=== PATIENT | female | born 1985 | race Caucasian/White ===

== ENCOUNTER 2024-10-23 12:08 | Emergency (ER) | payer BC, SELFPAY ==
[2024-10-23 12:11] VITALS: BP 171/100
[2024-10-23 13:42] VITALS: BMI 35.0
[2024-10-23] MEDS: DILAUDID 0.5 MG IV (13:45)
[2024-10-23] MEDS: NSS 1000 IV ×2 (13:46→16:13)
[2024-10-23 14:04] LABS: Hematocrit 30.1 % (37.0-47.0); Hemoglobin 9.4 g/dL (12.0-16.0); Mean Corp Hgb Conc. 31.2 g/dL (33.0-37.0); Mean Corpuscular Volume 81.4 fL (81.0-99.0); Nucleated Red Blood Cells % 0 %; Platelet Count 219 10^3/uL (130-400); Red Cell Dist. Width 14.8 % (11.5-14.5)
[2024-10-23 14:06] LABS: Urine Character Clear (Clear)
[2024-10-23 14:21] VITALS: BP 149/95
[2024-10-23 14:23] LABS: HCG, Serum Qualitative Screen Negative
[2024-10-23 14:24] LABS: Urine Red Blood Cell 0-2 /HPF (0-2)
[2024-10-23 14:25] LABS: ALT (SGPT) 366 U/L (0-35); AST (SGOT) 125 U/L (14-36); Albumin 4.1 g/dl (3.5-5.0); Alkaline Phosphatase 120 U/L (38-126); Blood Urea Nitrogen 34 mg/dl (7-17); Calcium 9.4 mg/dl (8.4-10.2); Carbon Dioxide 23 mmol/L (22-30); Chloride 109 mmol/L (98-107); Estimated Creatinine Clearance 70 ml/min; Glucose 81 mg/dl (70-99); Lipase 117 U/L (23-300); Potassium 4.0 mmol/L (3.5-5.1); Sodium 139 mmol/L (135-145); Total Protein 6.6 g/dl (6.3-8.2); eGFR > 60.00
[2024-10-23 15:33] VITALS: BP 125/74
--- NOTE | 2024-10-23 16:14 | ED.GENMED ---
History of Present Illness
<AMADOR Allen Last Filed: 10/24/24 11:57>
General
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
Source: patient
Exam Limitations: none
Time Seen by Provider: 10/23/24 12:19
Nursing documentation reviewed up to this point in time: agreed with
History of Present Illness
History of Present Illness:
see MDM
Past History
<AMADOR Allen Last Filed: 10/24/24 11:57>
Past History
ED Past Medical History: Cancer (renal cell carcinoma), HTN, Hypothyroidism and Other (UTI)
ED Past Surgical History: Appendectomy, Cholecystectomy and Urological (partial nephrectomy L)
Social History
Tobacco: Non-smoker
Alcohol: None
Drug: None
Personal: Single
Phy Exam
<AMADOR Allen Last Filed: 10/24/24 11:57>
Physical Exam
Physical Exam:
GENERAL: Alert , in no apparent distress
EYE: pupils equal and reactive
NECK: Supple
ENT: o/p clr, mmm.
CARDIAC: Regular rate and rhythm .
LUNGS: Clear breath sounds bilaterally, no acute respiratory distress, no wheezes/rales/rhonchi
ABDOMEN: Soft, tender pelvic region,k lowr abdomen, mild RUQ tenderness, mild B/L CVA tenderness; no r/g, no cvat, normal bowel sounds
gU; normal external inspection
mild cloudy discharge
mild discomfort with exam
no erythema to cervix
NEUROLOGICAL: Alert and oriented, no focal neuro deficits
SKIN: Warm and dry, skin intact.
MUSCULOSKELETAL: No edema, well perfused. neg lexis's sign
PSYCH: Normal and appropriate interaction.
Course
<AMADOR Allen Last Filed: 10/24/24 11:57>
Orders/Labs/Results
Orders:
Orders
10/23/24 13:14
0.9% Sodium Chloride 1000 ml [Nss] 1,000 ml IV BOLUS
HYDROmorphone [Dilaudid] 0.5 mg IV NOW STA
10/23/24 13:15
Test Result ONCE
10/23/24 13:41
Complete Blood Count/With Diff Urgent
Comprehensive Metabolic Panel Urgent
HCG, Serum Qualitative Screen Urgent
Lactic Acid Urgent
Lipase Urgent
Urinalysis Reflex To Culture Urgent
Date Specimen was Collected: 10/23/24
Time Specimen was Collected: 13:38
Urine Microscopic Reflex Cult Urgent
Chlamydia/GC by PCR Urgent
ELISE Source: Endo-Cervical
Specimen Description:
Source:: URINE
Date Specimen was Collected: 10/23/24
Time Specimen was Collected: 13:38
Comment: Add on per Minerva Bautista PA-C
10/23/24 15:53
US Abdomen Complete/Upper Urgent
Comment:
Reason For Exam: elevated LFTs, abd pain, back pain
US Pelvis Only (non-obstetric) Urgent
Reason For Exam: pelvic pain, h/o ovarian cyst
10/23/24 16:07
0.9% Sodium Chloride 1000 ml [Nss] 1,000 ml IV BOLUS
10/23/24 16:12
Trichomonas - Wet Prep Urgent
ELISE Source: Vagina
Specimen Description:
Date Specimen was Collected: 10/23/24
Time Specimen was Collected: 16:07
10/23/24 17:45
Ketorolac [Toradol] 30 mg IV NOW STA
10/23/24 18:48
Add On- LAB Urgent
Tests Added?: urine- chlamydia, GC
10/23/24 20:48
Ceftriaxone Sodium [Rocephin] 500 mg IM NOW STA
10/23/24 20:50
Doxycycline [Vibramycin] 100 mg PO NOW STA
Abnormal Lab Results
10/23/24
13:41
RBC 3.70 L 10^6/uL
(4.20-5.40)
Hgb 9.4 L g/dL
(12.0-16.0)
Hct 30.1 L %
(37.0-47.0)
MCH 25.4 L pg
(27.0-31.0)
MCHC 31.2 L g/dL
(33.0-37.0)
RDW 14.8 H %
(11.5-14.5)
MPV 11.2 H fL
(7.4-10.4)
Chloride 109 H mmol/L
(98-107)
BUN 34 H mg/dl
(7-17)
AST 125 H U/L
(14-36)
ALT 366 H U/L
(0-35)
Urine Bacteria (Reflex) Few A
(Negative)
Urine Glucose 3+ A
(Negative)
Urine Albumin (Reflex) 1+ A
(Neg - Trace)
10/23/24 13:41
10/23/24 13:41
Vital Signs
Initial and Last Documented VS:
Initial Vital Signs
Temp Pulse Resp BP Pulse Ox
37.1 C 102 17 171/100 98
10/23/24 12:11 10/23/24 12:11 10/23/24 12:11 10/23/24 12:11 10/23/24 12:11
Last Documented Vital Signs
Temp Pulse Resp BP Pulse Ox
37.1 C 91 16 141/70 98
10/23/24 12:11 10/23/24 20:04 10/23/24 20:04 10/23/24 20:04 10/23/24 20:04
<Joana Montiel PA-C - Last Filed: 10/24/24 02:39>
Orders/Labs/Results
Orders:
Orders
10/23/24 13:14
0.9% Sodium Chloride 1000 ml [Nss] 1,000 ml IV BOLUS
HYDROmorphone [Dilaudid] 0.5 mg IV NOW STA
10/23/24 13:15
Test Result ONCE
10/23/24 13:41
Complete Blood Count/With Diff Urgent
Comprehensive Metabolic Panel Urgent
HCG, Serum Qualitative Screen Urgent
Lactic Acid Urgent
Lipase Urgent
Urinalysis Reflex To Culture Urgent
Date Specimen was Collected: 10/23/24
Time Specimen was Collected: 13:38
Urine Microscopic Reflex Cult Urgent
Chlamydia/GC by PCR Urgent
ELISE Source: Endo-Cervical
Specimen Description:
Source:: URINE
Date Specimen was Collected: 10/23/24
Time Specimen was Collected: 13:38
Comment: Add on per Minerva Bautista PA-C
10/23/24 15:53
US Abdomen Complete/Upper Urgent
Comment:
Reason For Exam: elevated LFTs, abd pain, back pain
US Pelvis Only (non-obstetric) Urgent
Reason For Exam: pelvic pain, h/o ovarian cyst
10/23/24 16:07
0.9% Sodium Chloride 1000 ml [Nss] 1,000 ml IV BOLUS
10/23/24 16:12
Trichomonas - Wet Prep Urgent
ELISE Source: Vagina
Specimen Description:
Date Specimen was Collected: 10/23/24
Time Specimen was Collected: 16:07
10/23/24 17:45
Ketorolac [Toradol] 30 mg IV NOW STA
10/23/24 18:48
Add On- LAB Urgent
Tests Added?: urine- chlamydia, GC
10/23/24 20:48
Ceftriaxone Sodium [Rocephin] 500 mg IM NOW STA
10/23/24 20:50
Doxycycline [Vibramycin] 100 mg PO NOW STA
Abnormal Lab Results
10/23/24
13:41
RBC 3.70 L 10^6/uL
(4.20-5.40)
Hgb 9.4 L g/dL
(12.0-16.0)
Hct 30.1 L %
(37.0-47.0)
MCH 25.4 L pg
(27.0-31.0)
MCHC 31.2 L g/dL
(33.0-37.0)
RDW 14.8 H %
(11.5-14.5)
MPV 11.2 H fL
(7.4-10.4)
Chloride 109 H mmol/L
(98-107)
BUN 34 H mg/dl
(7-17)
AST 125 H U/L
(14-36)
ALT 366 H U/L
(0-35)
Urine Bacteria (Reflex) Few A
(Negative)
Urine Glucose 3+ A
(Negative)
Urine Albumin (Reflex) 1+ A
(Neg - Trace)
10/23/24 13:41
10/23/24 13:41
Vital Signs
Initial and Last Documented VS:
Initial Vital Signs
Temp Pulse Resp BP Pulse Ox
37.1 C 102 17 171/100 98
10/23/24 12:11 10/23/24 12:11 10/23/24 12:11 10/23/24 12:11 10/23/24 12:11
Last Documented Vital Signs
Temp Pulse Resp BP Pulse Ox
37.1 C 91 16 141/70 98
10/23/24 12:11 10/23/24 20:04 10/23/24 20:04 10/23/24 20:04 10/23/24 20:04
<Minevra Bautista PA-C - Last Filed: 10/24/24 11:57>
MDM/Problems Addressed
Differential Diagnosis Includes:
seeMDM
MDM/Problems Addressed:
Note:
CHIEF COMPLAINT(S)
Severe pelvic pain persisting for two days with increased urinary frequency.
HISTORY OF PRESENT ILLNESS
The patient is a 38-year-old female with a history of ovarian cysts, UTIs, pyelonephritis and a partial nephrectomy in 2017 due to renal cell carcinoma, presenting with severe pelvic pain for the past two days and frequent urination. She mentioned,
'Maia had really bad pelvic pain,' and confirmed the urinary frequency started approximately two days prior to the onset of pelvic pain. The patient denies dysuria but reports chills. She has a history of bilateral ovarian cysts for which she has
never required surgery. She is not on control and last reported menstrual cycle started on September 26. The patient rates her pelvic pain at an intensity of 10 out of 10, noting difficulty standing upright on the previous day due to the
discomfort. She also experiences tenderness in the flank region, describing episodes of 'on and off aching' throughout the night.
The patient takes Tylenol with codeine for chronic back pain without relief from her pelvic symptoms. She explains, 'Its usually pretty good for my back,' but states she has had to increase the dosage to manage the current pain. The patient has a
known intolerance for ibuprofen and reports flank tenderness upon palpation.
PAST MEDICAL AND SURGICAL HISTORY
Partial nephrectomy in 2017 for renal cell carcinoma.
History of bilateral ovarian cysts.
History of pyelonephritis.
CHRONIC MEDICAL CONDITIONS SIGNIFICANTLY AFFECTING CARE
Chronic back pain.
SOCIAL DETERMINANTS AFFECTING HEALTH
Not discussed.
REVIEW OF SYSTEMS
- Genitourinary: Urinary frequency without dysuria.
- Constitutional: Chills, though no fevers reported.
- Gastrointestinal: No nausea or vomiting.
- Musculoskeletal: Severe pelvic pain, difficulty standing upright.
- Reproductive: Last menstrual cycle began on September 26; no vaginal bleeding or discharge reported.
PHYSICAL EXAM
- Abdomen: Renal tenderness upon palpation, particularly in the flank areas (reported as tender in both the graft and kidney region).
- Genitourinary: Tenderness noted in the pelvic region upon examination.
Nursing notes reviewed and vital signs reviewed.
PROBLEM LIST
Acute:
- Severe pelvic pain
- Frequent urination
Chronic:
- Chronic back pain
PLAN
- Perform urinalysis and blood work to evaluate for urinary tract infection and assess kidney function.
- Administer intravenous fluids and provide pain relief via previously tolerated medications (morphine or dilaudid).
- Consider imaging with a non-contrast study to rule out obstruction, keeping in mind the partial nephrectomy and the emphasis on avoiding IV contrast.
- Wait for urinalysis results to further guide management and consider differentials based on findings, including potential pyelonephritis or other pelvic pathology.
DIFFERENTIAL DIAGNOSIS
The Differential Diagnosis includes, in no particular order and is not limited to:
1. Urinary tract infection
2. Pyelonephritis
3. Ovarian cyst rupture
4. Renal colic or kidney stones
5. Pelvic inflammatory disease
6. Endometriosis
7. Appendicitis
8. Ectopic
9. Ureteral obstruction
10. Diverticulitis
CARE-UPDATE
10/23/24 - 15:50
Urinalysis indicates no kidney infection, with negative results for nitrates, leukocytes, and blood, though some bacteria were present but there were many squamous cells. Elevated liver markers noted, with AST in the 100s and ALT in the 300s. pt
says she has been told of elevated LFTs in the past but never this high; i did look at patient's portal o nher phone showing ALT 80S.
she had cholecystectomy int hepast
suppose she could have choledocho, will eval with RUQ US as well as pelvic ultrasound to assess potential ovarian or other abdominal issues. Discussed potential for pelvic inflammatory disease, though unlikely based on current symptoms. Patient
hydrated with normal creatinine, indicating potential dehydration but not renal impairment. Further tests for STDs and pelvic conditions to be conducted, with results to be communicated directly with the patient. Patient consented to privacy
regarding potentially sensitive results.
<Minerva Bautista PA-C - Last Filed: 10/24/24 11:57>
*Pulse Oximetry
SaO2: 99
Oxygen Mode of Delivery: Room air
<Joana Montiel PA-C - Last Filed: 10/24/24 02:39>
*Pulse Oximetry
Patient hypoxic: no
*Critical Care Note
Total Time (30-74mins, 75-104mins- exclusive of procedures): Not Applicable
<AMADOR Washington Last Filed: 10/24/24 02:39>
Update Note
Update Note:
Update
I received patient in sign out
On my evaluation, patient is pain-free and feeling well
Patient does have a small simple cyst within each ovary but evidence of normal flow, her abdominal ultrasound shows status post cholecystectomy with no evidence of biliary ductal dilation. She does have elevated LFTs however there was fatty
infiltration noted on ultrasound may be related to fatty liver disease. Discussed follow-up and repeat blood work. No concern for acute coronary syndrome at this time. However, given pelvic pain and vaginal discharge with no clear etiology new
sexual partner will start on STD prophylaxis
ED Attending Note
<Minerva Bautista PA-C - Last Filed: 10/24/24 11:57>
-
Portions of this chart may have been created with voice recognition software.� Occasional wrong word or��sound alike� substitutions may have occurred due to the inherent limitations of voice recognition software.
Discharge Plan
Departure
Patient Disposition: Home (Routine Discharge)
Date of Disposition: 10/23/24
Time of Disposition: 20:55
Patient with high blood pressure during this ER visit?: Yes
Condition: Good
Discharge Problem:
Pelvic pain
Instructions: Pelvic pain - ED discharge instructions, BLOOD PRESSURE
Prescriptions:
New
doxycycline hyclate 100 mg tablet
100 mg PO BID 7 Days Qty: 14 0RF
Referrals:
Connie Mi DO [Family Provider]
Activity Restrictions/Additional Instructions:
Please have your blood work repeated with your primary care provider. Your liver function tests are elevated. Your abdominal ultrasound showed mild fatty infiltration of the liver but no focal lesion and no biliary ductal dilation. Please
follow-up with your BACKSHOE PERSON in 1 to 2 weeks. You should receive a call regarding the results of your testing. Doxycycline sent to pharmacy. Please take 1 tablet twice daily for 7 days.
PLEASE RETURN EMERGENCY DEPARTMENT SHOULD YOU DEVELOP FEVERS OR CHILLS, ACUTE WORSENING OR PAIN, INTRACTABLE NAUSEA OR VOMITING, OR ANY OTHER SIGNS OR SYMPTOMS WORRISOME TO YOU.
Interventions
Interventions:
*Risk Screen - Suicide Last Done: 10/23/24 12:15
*General Assessment Last Done: 10/23/24 12:15
*Neglect/Abuse Screening Last Done: 10/23/24 12:15
*ED- Fall Risk Assessment Last Done: 10/23/24 14:21
*ED COVID-19 Vaccine History Last Done: 10/23/24 12:15
*Nursing Disposition Last Done: 10/23/24 21:18
ED-Female Genitourinary Assessment Last Done: 10/23/24 13:45
Discharge Date and Time
Discharge Date/Time: 10/23/24 21:18
Print Language: AZERI
[2024-10-23] MEDS: TORADOL 30 MG IV (19:27)
--- NOTE | 2024-10-23 19:30 | EDRN ---
Report received while patient was in ultrasound she is now back and medicated as ordered, will continue to monitor and update patient.
[2024-10-23 20:04] VITALS: BP 141/70
--- NOTE | 2024-10-23 20:45 | EDRN ---
Updated patient on report being back and that hope, pa is aware and reviewing results and will come in and talk with them, patient wanting to be discharged, IV removed
[2024-10-23] MEDS: ROCEPHIN 500 MG IM (21:01)
[2024-10-23] MEDS: VIBRAMYCIN 100 MG PO (21:01)
== END 2024-10-23 21:18 | disposition home or self-care (01) ==
LOC: EMR 12:08
PROVIDERS: Physician Assistant; EMERGENCY PHYSICIAN Emergency Medicine; FAMILY PHYSICIAN Family Medicine
DX: R10.2 Pelvic and perineal pain (principal); N83.292 Other ovarian cyst, left side; N83.291 Other ovarian cyst, right side; K76.0 Fatty (change of) liver, not elsewhere classified; E03.9 Hypothyroidism, unspecified; Z85.528 Personal history of other malignant neoplasm of kidney; G89.29 Other chronic pain; I10 Essential (primary) hypertension; Z90.5 Acquired absence of kidney; Z90.49 Acquired absence of other specified parts of digestive tract
CPT/HCPCS: 96374; 96375; 96372; 96361; 99284; 76700; 76856; 80053; 81003; 81015; 83605; 83690; 84703; 85025; 87210; 87491; 87591